=== PATIENT | female | born 1945 | race African-American/Black ===

== ENCOUNTER 2018-12-25 14:00 | Inpatient (IN) | payer MEDICARE, OTHER ==
[~2018-12-25] VITALS: Ht 162.6 cm; Wt 79.8 kg
[2018-12-25 15:37] LABS: CHLORIDE 110 mEq/L (98-107)
[2018-12-25 15:38] LABS: BASOPHILS % 0.3 % (0.0-2.0); EOSINOPHILS % 0.9 % (0.0-5.0); HEMATOCRIT. 39.8 % (36.0-48.0); HEMOGLOBIN. 13.1 g/dL (12.0-16.0); LYMPHOCYTES % 17.2 % (20.0-50.0); MEAN CORPUSCULAR HEMOGLOBIN 26.9 pg (28.0-32.0); MEAN CORPUSCULAR VOLUME 81.5 fL (81.0-99.0); MEAN PLATELET VOLUME 8.2 fl (7.4-10.4); MONOCYTES % 6.9 % (2.0-8.0); NEUTROPHILS % 74.7 % (40.0-76.0); PLATELET 265 x1000/uL (130-400); RED BLOOD CELL COUNT 4.88 mill/uL (4.2-5.4)
[2018-12-25 19:04] LABS: CLARITY URINE CLEAR (CLEAR); COLOR URINE YELLOW (YELLOW); KETONES URINE TRACE (NEGATIVE); LEUKOCYTE ESTERASE URINE NEGATIVE (NEGATIVE); NITRITE URINE NEGATIVE (NEGATIVE); OCCULT BLOOD URINE NEGATIVE (NEGATIVE); PROTEIN URINE TRACE (NEGATIVE); SPECIFIC GRAVITY URINE 1.027 (1.005-1.030); UROBILINOGEN URINE 0.2 E.U./dL (0.2-1.0)
[2018-12-25] MEDS ORDERED: ASPIRIN 325MG TABLET PO ONE (19:30)
[2018-12-25] MEDS ORDERED: HYDR-4009 PO (23:44)
[2018-12-25] MEDS ORDERED: DIAZ10TA4 PO (23:45)
[2018-12-26] VITALS: BP 151/86
[2018-12-26] MEDS ORDERED: MECLIZINE 12.5MG TABLET PO PRN (00:45)
[2018-12-26] MEDS ORDERED: ACETAMINOPHEN 325MG TABLET PO PRN ×2 (00:45→16:15)
[2018-12-26 04:00] VITALS: BP 155/60
[2018-12-26 07:51] LABS: BASOPHILS % 0.3 % (0.0-2.0); EOSINOPHILS % 0.9 % (0.0-5.0); HEMATOCRIT. 38.2 % (36.0-48.0); HEMOGLOBIN. 12.8 g/dL (12.0-16.0); LYMPHOCYTES % 22.5 % (20.0-50.0); MEAN CORPUSCULAR HEMOGLOBIN 27.3 pg (28.0-32.0); MEAN CORPUSCULAR VOLUME 81.4 fL (81.0-99.0); MEAN PLATELET VOLUME 8.1 fl (7.4-10.4); MONOCYTES % 7.8 % (2.0-8.0); NEUTROPHILS % 68.5 % (40.0-76.0); PLATELET 272 x1000/uL (130-400); RED CELL DISTRIBUTION WIDTH 14.1 % (11.6-14.6)
[2018-12-26 07:56] LABS: CHLORIDE 108 mEq/L (98-107)
[2018-12-26 08:00] VITALS: BP 164/86
[2018-12-26 08:19] LABS: LDL CHOLESTEROL 190 mg/dL (5-100)
[2018-12-26 08:21] LABS: HDL CHOLESTEROL 40 mg/dL (40-59)
[2018-12-26] MEDS: CLOPIDOGREL 75MG TABLET PO SCH (09:46)
[2018-12-26] MEDS: ASPIRIN 81MG TABLET PO SCH (09:46)
[2018-12-26 12:00] VITALS: BP 173/105
[2018-12-26] MEDS ORDERED: NITROGLYCERIN OINT 1GM/INCH UDPKT TD SCH (12:00)
[2018-12-26] MEDS ORDERED: CLONIDINE 0.1MG TABLET PO PRN (15:15)
[2018-12-26 16:00] VITALS: BP 179/86
[2018-12-26] MEDS ORDERED: LORAZEPAM 0.5MG TABLET PO PRN (16:15)
[2018-12-26] MEDS ORDERED: DIPHENHYDRAMINE 50MG/ML VIAL IV PRN (16:15)
[2018-12-26] MEDS ORDERED: MAGNESIUM HYDROXIDE 400MG/5ML 30ML UDC PO PRN (16:15)
[2018-12-26] MEDS ORDERED: TEMAZEPAM 15MG CAPSULE PO PRN (16:15)
[2018-12-26] MEDS ORDERED: ONDANSETRON HCL 4MG/2ML INJ IV PRN (16:15)
[2018-12-26] MEDS ORDERED: DEXTROSE 50% WATER 50ML SYRINGE IV PRN (16:15)
[2018-12-26] MEDS ORDERED: MAGNESIUM/ALUMINUM HYDROXIDE/SIMETHICONE 30ML UDC PO PRN (16:15)
[2018-12-26] MEDS: BLOOD SUGAR DIAGNOSTIC STRIP TEST SCH ×2 (17:10→21:52)
[2018-12-26] MEDS ORDERED: TRAMADOL 50MG TABLET PO PRN (17:15)
[2018-12-26] MEDS: INSULIN LISPRO 100 UNITS/ML SUBCUT SCH ×2 (17:40→21:00)
[2018-12-26 20:00] VITALS: BP 133/70
[2018-12-26] MEDS ORDERED: ATORVASTATIN CALCIUM 40MG TABLET PO SCH (21:00)
[2018-12-26] MEDS: CITALOPRAM HYDROBROMIDE 10MG TABLET PO SCH (21:42)
[2018-12-26] MEDS: AMLODIPINE 5MG TABLET PO SCH (21:43)
[2018-12-26] MEDS: SODIUM CHLORIDE 0.9% INJ 3ML FLUSH IVF SCH (23:19)
[2018-12-27] VITALS: BP 115/52
[2018-12-27 04:00] VITALS: BP 126/67
[2018-12-27 05:47] LABS: HEMOGLOBIN 12.6 g/dL (12.0-16.0); MEAN CORPUSCULAR HEMOGLOBIN 27.5 pg (28.0-32.0); MEAN CORPUSCULAR VOLUME 81.2 fL (81.0-99.0); PLATELET 258 x1000/uL (130-400); RED BLOOD CELL COUNT 4.56 mill/uL (4.2-5.4); RED CELL DISTRIBUTION WIDTH 14.3 % (11.6-14.6)
[2018-12-27 05:55] LABS: CHLORIDE 109 mEq/L (98-107)
[2018-12-27] MEDS: BLOOD SUGAR DIAGNOSTIC STRIP TEST SCH ×2 (06:33→12:10)
[2018-12-27] MEDS: SODIUM CHLORIDE 0.9% INJ 3ML FLUSH IVF SCH ×2 (06:33→14:00)
[2018-12-27] MEDS: INSULIN LISPRO 100 UNITS/ML SUBCUT SCH ×2 (06:34→12:40)
[2018-12-27] MEDS: ASPIRIN 81MG TABLET PO SCH (08:42)
[2018-12-27] MEDS: CLOPIDOGREL 75MG TABLET PO SCH (08:42)
[2018-12-27] MEDS: AMLODIPINE 5MG TABLET PO SCH (08:42)
[2018-12-27] MEDS: CITALOPRAM HYDROBROMIDE 10MG TABLET PO SCH (08:43)
[2018-12-27 12:00] VITALS: BP 132/68
[2018-12-27 15:50] VITALS: BP 132/68
== END 2018-12-27 16:08 | disposition home or self-care (01) | DRG 199 ==
LOC: ER 14:00 → 8WST 19:26 → EDBEDREQ 19:39 → EDBEDREQTM 19:39 → ENRESERV 22:13
PROVIDERS: ADMIT Ophthalmology; ATTEND Ophthalmology
DX: I10 Essential (primary) hypertension (principal); G93.41 Metabolic encephalopathy; E11.9 Type 2 diabetes mellitus without complications; E78.00 Pure hypercholesterolemia, unspecified; G89.29 Other chronic pain; E66.9 Obesity, unspecified; F32.9 Major depressive disorder, single episode, unspecified; E78.5 Hyperlipidemia, unspecified; F41.1 Generalized anxiety disorder; Z68.30 Body mass index [BMI] 30.0-30.9, adult; Z79.84 Long term (current) use of oral hypoglycemic drugs
CPT/HCPCS: 36415; 70551; 71045; 80048; 80061; 81003; 82962; 83036; 83880; 84484; 85027; 93005; 93880; 93970; 97162; 97166; 99285

== ENCOUNTER 2020-07-23 21:25 | Emergency (ER) | payer MEDICARE, OTHER ==
[~2020-07-23] VITALS: Ht 157.5 cm; Wt 77.0 kg
[2020-07-23] MEDS ORDERED: NITROGLYCERIN 0.4MG TABLET SL SL PRN (22:00)
[2020-07-23] MEDS ORDERED: ASPIRIN 81MG TABLET PO ONE (22:00)
[2020-07-23 23:39] LABS: BASOPHILS % 0.3 % (0.0-2.0); EOSINOPHILS % 0.9 % (0.0-5.0); HEMATOCRIT. 35.8 % (36.0-48.0); HEMOGLOBIN. 11.9 g/dL (12.0-16.0); LYMPHOCYTES % 26.7 % (20.0-50.0); MEAN CORPUSCULAR HEMOGLOBIN 26.8 pg (28.0-32.0); MEAN CORPUSCULAR VOLUME 80.4 fL (81.0-99.0); MEAN PLATELET VOLUME 7.8 fl (7.4-10.4); MONOCYTES % 8.6 % (2.0-8.0); NEUTROPHILS % 63.5 % (40.0-76.0); PLATELET 233 x1000/uL (130-400); RED BLOOD CELL COUNT 4.45 mill/uL (4.2-5.4); RED CELL DISTRIBUTION WIDTH 13.7 % (11.6-14.6)
[2020-07-23 23:46] LABS: CHLORIDE 110 mEq/L (98-107)
[2020-07-24 03:56] VITALS: BP 159/83
== END 2020-07-24 06:49 | disposition short-term general hospital (02) ==
LOC: ER 21:25 → CANBEDREQ 07-24 08:07
DX: R07.9 Chest pain, unspecified (principal); I20.0 Unstable angina; E11.9 Type 2 diabetes mellitus without complications; I10 Essential (primary) hypertension
CPT/HCPCS: 36415; 71045; 80053; 83880; 84484; 85025; 93005; 99285; Z7610